=== PATIENT | female | born 1995 | race Caucasian/White ===

== ENCOUNTER 2022-12-31 20:42 | Emergency (ER) | payer BC, OTHER ==
[2022-12-31 21:39] LABS: Appearance Cloudy (Clear); Bacteria None Seen /HPF (None Seen); Bilirubin Negative (Negative); Blood Small (Negative); Epithelial Cells Rare /HPF (None Seen); Glucose, Urine Negative (Negative); Hyaline Casts NONE SEEN /LPF (0-2); Ketones Negative (Negative); Leukocyte Esterase Large (Negative); Nitrite Negative (Negative); Ph 5.5 (4.6-8.0); Protein,Urine Dip 100 (Negative); Specific Gravity 1.015 (1.005-1.030); Urobilinogen 0.2 mg/dL (0.2); WBC >100 /HPF (0-5)
[2022-12-31 21:44] LABS: ADD URINE CULTURE? YES (NO)
--- NOTE | 2022-12-31 21:48 | ERPHSYRPT ---
- History of Present Illness Time Seen by Provider: 12/31/22 21:30 Source: patient Exam Limitations: no limitations Patient Subjective Stated Complaint: pt states "I think I have a kidney infection or UTI or something. I get them a lot." Triage Nursing Assessment: pt ambulatory to bed by self, pt alert and oriented x3, pt c/o L flank pain, burning upon urination, and urine frequency since yesterday. pt has hx of frequent UTI and kidney infections. pt rating pain 8/10 and has been taken azo at home to help with the burning, pt on cellphone texting throughout triage Physician History: Patient is a 27-year-old female presents to the emergency department for evaluation of suspected UTI. Patient states symptoms started yesterday. Patient experiencing urgency frequency and dysuria. Patient has some tenderness at her left flank. No history of kidney stones. Patient currently rates her pain 8 out of 10 however she appears to be comfortable she is laughing and joking in the room. No obvious distress. Patient voices no other complaints or concerns at this time. Portions of this note were created with voice recognition technology. There may be grammatical, spelling, punctuation or sound alike errors Timing/Duration: yesterday Severity: moderate Modifying Factors: Improves With: nothing Associated Symptoms: denies symptoms Allergies/Adverse Reactions: No Known Drug Allergies Allergy (Verified 12/31/22 21:08) Home Medications: Bupropion HCl 150 mg Sr [Wellbutrin SR 150 MG] 150 mg PO DAILY 12/31/22 [History] Hx Tetanus, Diphtheria Vaccination/Date Given: Yes Hx Influenza Vaccination/Date Given: No Hx Pneumococcal Vaccination/Date Given: No Immunizations Up to Date: Yes Travel Risk - International Travel Have you traveled outside of the country in past 3 weeks: No - Coronavirus Screening Are you exhibiting any of the following symptoms?: No Close contact with a COVID-19 positive Pt in past 14-21 Days: No - Vaccine Status Have you recieved a Covid-19 vaccination: No - Review of Systems Constitutional: No Symptoms, No Fever, No Chills Eyes: No Symptoms Ears, Nose, & Throat: No Symptoms Respiratory: No Symptoms, No Cough, No Dyspnea Cardiac: No Symptoms, No Chest Pain, No Edema, No Syncope Abdominal/Gastrointestinal: No Symptoms, No Abdominal Pain, No Nausea, No Vomiting, No Diarrhea Genitourinary Symptoms: No Symptoms, No Dysuria Musculoskeletal: No Symptoms, No Back Pain, No Neck Pain Skin: No Symptoms, No Rash Neurological: No Symptoms, No Dizziness, No Focal Weakness, No Sensory Changes Psychological: No Symptoms Endocrine: No Symptoms Hematologic/Lymphatic: No Symptoms Immunological/Allergic: No Symptoms All Other Systems: Reviewed and Negative - Past Medical History Pertinent Past Medical History: Yes Neurological History: No Pertinent History ENT History: No Pertinent History Cardiac History: No Pertinent History Respiratory History: No Pertinent History Endocrine Medical History: No Pertinent History Musculoskeletal History: No Pertinent History GI Medical History: No Pertinent History History: No Pertinent History Psycho-Social History: No Pertinent History Female Reproductive Disorders: No Pertinent History Other Medical History: multiple kidney infections - Past Surgical History Past Surgical History: Yes Neuro Surgical History: No Pertinent History Cardiac: No Pertinent History Respiratory: No Pertinent History Gastrointestinal: Cholecystectomy Genitourinary: No Pertinent History Musculoskeletal: No Pertinent History Female Surgical History: No Pertinent History Other Surgical History: R hand - Social History Smoking Status: Never smoker Exposure to second hand smoke: No Drug Use: none Patient Lives Alone: No - Female History Hx Last Menstrual Period: 12/24/22 Hx Now: No - Nursing Vital Signs Nursing Vital Signs: Initial Vital Signs Temperature 97.8 F 12/31/22 21:11 Pulse Rate 65 12/31/22 21:11 Respiratory Rate 16 12/31/22 21:11 Blood Pressure 121/78 12/31/22 21:11 O2 Sat by Pulse Oximetry 98 12/31/22 21:11 Pain Scale Pain Intensity 0 - Physical Exam General Appearance: no apparent distress, alert Eye Exam: PERRL/EOMI, eyes nml inspection Ears, Nose, Throat Exam: normal ENT inspection, TMs normal, pharynx normal, moist mucous membranes Neck Exam: normal inspection, non-tender, supple, full range of motion Respiratory Exam: normal breath sounds, lungs clear, No respiratory distress Cardiovascular Exam: regular rate/rhythm, normal heart sounds, normal peripheral pulses Gastrointestinal/Abdomen Exam: soft, normal bowel sounds, tenderness, other (Left-sided CVA tenderness), No mass Back Exam: normal inspection, normal range of motion, No CVA tenderness, No vertebral tenderness Extremity Exam: normal inspection, normal range of motion, pelvis stable Neurologic Exam: alert, oriented x 3, cooperative, normal mood/affect, nml cerebellar function, nml station & gait, sensation nml, No motor deficits Skin Exam: normal color, warm, dry, No rash Lymphatic Exam: No adenopathy SpO2 Interpretation: normal SpO2: 98 O2 Delivery: Room Air - Course Nursing assessment & vital signs reviewed: Yes - CT Exams Abdomen/Pelvis CT Interpretation: Tele-radiologist Report (Mildly dilated left renal pelvis and proximal ureter however no hyperdense calculus is seen in the left ureter at present study possibility of recently passed ureteral calculus needs to be considered. Suggested correlation with previous imaging. Bilateral faint hyperdense along the medulla of both) Ordered Tests: Active Orders 24 hr Category Date Time Status ABDOMEN AND PELVIS W/0 CONTRAS [CT] Stat Exams 12/31/22 21:43 Completed CULTURE,URINE Stat Lab 12/31/22 21:24 Received HCG QUALITATIVE, URINE Stat Lab 12/31/22 21:30 Completed UA W/RFX UR CULTURE Stat Lab 12/31/22 21:24 Completed Medication Summary Discontinued Medications Generic Name Dose Route Start Last Admin Trade Name Viktorq PRN Reason Stop Dose Admin Cephalexin HCl 500 mg 12/31/22 21:57 12/31/22 22:24 Cephalexin Mh500 Mg Capsule PO 12/31/22 21:58 500 mg STAT ONE Administration Cephalexin HCl Confirm 12/31/22 22:22 Cephalexin Mh500 Mg Capsule Administered 12/31/22 22:23 Dose 500 mg .ROUTE .STK-MED ONE Ketorolac Tromethamine 30 mg 12/31/22 21:50 12/31/22 22:23 Ketorolac Tromethamine 30 Mg/Ml Inj IM 12/31/22 21:51 30 mg STAT ONE Administration Ketorolac Tromethamine Confirm 12/31/22 22:22 Ketorolac Tromethamine 30 Mg/Ml Inj Administered 12/31/22 22:23 Dose 30 mg .ROUTE .STK-MED ONE Lab/Rad Data: Laboratory Results 12/31/22 12/31/22 Range/Units 21:30 21:24 Urine Color Yellow (Yellow) Urine Appearance Cloudy A (Clear) Urine pH 5.5 (4.6-8.0) Ur Specific [place] 1.015 (1.005-1.030) Urine Protein 100 A (Negative) Urine Glucose (UA) Negative (Negative) mg/dL Urine Ketones Negative (Negative) Urine Blood Small A (Negative) Urine Nitrite Negative (Negative) Urine Bilirubin Negative (Negative) Urine Urobilinogen 0.2 (0.2) mg/dL Ur Leukocyte Esterase Large A (Negative) U Hyaline Cast (Auto) NONE SEEN (0-2) /LPF Urine Microscopic RBC 11-20 A (0-5) /HPF Urine Microscopic WBC >100 A (0-5) /HPF Ur Epithelial Cells Rare (None Seen) /HPF Urine Bacteria None Seen (None Seen) /HPF Urine Culture Reflexed YES (NO) Urine HCG, Qual NEGATIVE (NEGATIVE) - Progress Progress: improved Progress Note: Patient reassessed. She feels well. Patient received Toradol for pain control. Patient received an oral dose of Keflex. Patient states that she has had Keflex in the past for her urinary tract infections. The Keflex resolves her UTIs. Patient was educated on the importance of good hygiene. 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 It is likely or even possible that patient may have passed a kidney stone. However no indication for further work-up. Patient referred to urology for further evaluation as she tends to get recurrent urinary tract infections. Patient states that she has been getting recurrent urine [place] tract infections and was referred to urologist but never followed up. Urinalysis confirms a urinary tract infection. Patient has a pyuria as well. Patient is comfortable she is afebrile. Will discharge home. A prescription for Keflex was forwarded to patient's pharmacy. Patient will take her Keflex 500 mg 4 times daily x7 days. Patient voices no other complaints or concerns at this time. 27-year-old female with recurrent urinary tract infections. Patient presents with urinary symptomology. CT abdomen pelvis rule out nephrolithiasis. A prescription for Keflex forwarded to patient's pharmacy. Patient's presentation was acute. Complexity of problem addressed is low acute uncomplicated. No critical care time. Complexity of data reviewed and analyzed is moderate. Test ordered. Test/urinalysis reviewed and analyzed by Dr. Virk.. Patient served as an independent historian. Risk of complication and or risk morbidity/mortality of patient management is moderate. Patient received a prescription for Keflex. Patient received an oral dose complex to our ED. Patient agrees to follow-up with her primary care doctor and/or her urologist within 48 hours for reevaluation. Time spent at discharge is approximately 10 minutes. Education on the importance of hygiene discussed. 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 Patient voices no other complaints or concerns at this time. Portions of this note were created with voice recognition technology. There may be grammatical, spelling, punctuation or sound alike errors 01/01/23 00:52 Counseled pt/family regarding: lab results, diagnosis, need for follow-up, rad results - Departure Departure Disposition: Home Clinical Impression: Urinary tract infection, Medullary nephrocalcinosis Condition: Stable Critical Care Time: No Referrals: GARETH ESPANA NP [Primary Care Provider] - Follow up/PCP as directed ANJELICA VALADEZ [COURTESY STAFF] - Follow up/PCP as directed Instructions: Urinary Tract Infection, Adult (DC) Additional Instructions: Discharge/Care Plan CONCEPCION ROBLEDO was seen on 12/31/22 in the Emergency Room. The patient was counseled regarding Diagnosis,Lab results, Imaging studies, need for follow up and when to return to the Emergency Room. Prescriptions given: Discharge Note I have spoken with the patient and/or caregivers. I have explained the patient's condition, diagnosis and treatment plan based on the information available to me at this time. I have answered the patient's and/or caregiver's questions and addressed any concerns. The patient and/or caregivers have as good understanding of the patient's diagnosis, condition and treatment plan as can be expected at this point. The vital signs have been stable. The patient's condition is stable and appropriate for discharge from the emergency department. The patient will pursue further outpatient evaluation with the primary care physician or other designated or consulting physician as outlined in the discharge instructions. The patient and/or caregivers are agreeable to this plan of care and follow-up instructions have been explained in detail. The patient and/or caregivers have received these instruction. The patient/and or caregivers are aware that any significant change in condition or worsening of symptoms should prompt an immediate return to this or the closest emergency department or call 911. Prescriptions: Cephalexin Mh 500 mg [Keflex 500 mg] 500 mg PO QID 7 Days #28 cap
[2022-12-31] MEDS ORDERED: TORAdol 30 mg Injection IM ONE (21:50)
[2022-12-31 21:52] LABS: HCG URINE TEST NEGATIVE (NEGATIVE)
[2022-12-31] MEDS ORDERED: KEFLEX 500 MG PO ONE (21:57)
[2022-12-31] MEDS ORDERED: TORAdol 30 mg Injection ONE (22:22)
[2022-12-31] MEDS ORDERED: KEFLEX 500 MG ONE (22:22)
[2022-12-31 23:39] VITALS: PULSE 86
[2023-01-01 00:26] VITALS: BP 122/95; O2SAT 98
--- NOTE | 2023-01-01 00:33 | XRAY ---
CLINICAL HISTORY:Ureterolithiasis. Left flank pain for 2 days. History of cholecystectomy; COMPARISON:None; TECHNIQUES:CT scan of the abdomen and pelvis was performed without contrast. Coronal and sagittal reconstructive images were also obtained; FINDINGS: Abdomen. The liver is of average size. No focal or diffuse parenchymal abnormality. The intrahepatic biliary radicals and the bile ducts are normal. Post cholecystectomy status. The spleen, pancreas, and adrenal glands are unremarkable. The kidneys are normal in size and shape. Bilateral faint hyperdensities are seen along the medulla of both kidneys, which raises the possibility of developing medullary nephrocalcinosis. No calculi or hydronephrosis on the right side. The left renal pelvis and proximal ureter are mildly dilated with periureteric fat stranding, however, no radiodense calculus is seen in the left ureter. It could be due to recent passage of a stone. The ascending colon, the transverse colon, and the descending colon visualized small bowel loops are unremarkable. Uncomplicated colonic diverticulosis noted. There is no evidence of significant enlargement of the mesenteric or retroperitoneal lymph nodes. Pelvis. The urinary bladder is unremarkable. The rectosigmoid colon is unremarkable. Uterus is unremarkable. Both of these are bulky with hypodensities suggestive of the prominent follicles. Would recommend sonographic correlation. No evidence of pelvic lymphadenopathy. No definite bony abnormalities could be depicted. IMPRESSION: 1. Mildly dilated left renal pelvis and proximal ureter however, no radiodense calculus is seen in the left ureter at present study, possibility of recently passed ureteric calculus needs to be considered. Suggested correlation with previous imaging. 2. Bilateral faint hyperdensities along the medulla of both kidneys, which raises the possibility of developing medullary nephrocalcinosis. No calculi or hydronephrosis on the right side. Electronically Signed by: Bernarda Ro MD. (12/31/2022 23:26:06 [employer])
== END 2023-01-01 00:54 | disposition home or self-care (01) ==
LOC: ED 20:42
DX: N39.0 Urinary tract infection, site not specified (principal); E83.59 Other disorders of calcium metabolism; N29 Other disorders of kidney and ureter in diseases classified elsewhere; R30.0 Dysuria; R35.0 Frequency of micturition; Z79.899 Other long term (current) drug therapy; Z28.310 Unvaccinated for COVID-19; Z87.440 Personal history of urinary (tract) infections
CPT/HCPCS: 36415; 74176; 81001; 81025; 87086; 96372; 99283; J1885; A9270-GY